=== PATIENT | male | born 1990 | race Caucasian/White ===

== ENCOUNTER 2021-08-03 15:04 | Emergency (ER) | payer OTHER ==
[~2021-08-03] VITALS: Ht 167.6 cm; Wt 74.8 kg
[2021-08-03 15:10] VITALS: BP 118/74
--- NOTE | 2021-08-03 15:39 | NUR ---
pt swabbed for covid. sent to lab.
--- NOTE | 2021-08-03 16:54 | NUR ---
Patient discharged to [facility] in custody stable condition. Written and verbal after care instructions given.
== END 2021-08-03 16:55 ==
LOC: ER 15:06
DX: R09.81 Nasal congestion (principal); Z20.822 Contact with and (suspected) exposure to COVID-19; Z59.01 Sheltered homelessness
CPT/HCPCS: 87426; 99283; C9803